=== PATIENT | male | born 1990 | race Caucasian/White ===

== ENCOUNTER 2022-07-16 18:29 | Emergency (ER) | payer OTHER, SELFPAY ==
[2022-07-16 18:41] VITALS: BP 120/71; PULSE 49; RESP 16; TEMP 36.6; O2SAT 98; BMI 25.1
--- NOTE | 2022-07-16 18:42 | ED.GENADULT ---
HPI - General Adult General Chief complaint: GI Bleed <BARRETT Gonzáles Last Filed: 07/16/22 18:44> Stated complaint: vomiting blood <BARRETT Gonzáles Last Filed: 07/16/22 18:44> Time Seen by Provider: 07/16/22 19:41 <BARRETT Gonzáles Last Filed: 07/16/22 18:44> Source: patient <DO Regina Maxwell Last Filed: 07/16/22 19:53> Mode of arrival: ambulatory <DO Regina Maxwell Last Filed: 07/16/22 19:53> Limitations: no limitations <DO Regina Maxwell Last Filed: 07/16/22 19:53> History of Present Illness HPI narrative: [age] history of IV drug use has been constipated for several days presents emergency department after noticing blood in stool. Patient is also complaining of abdominal pain he denies any fevers falls nausea vomiting <DO Regina Maxwell Last Filed: 07/16/22 19:53> Onset (ago): day(s) <DO Regina Maxwell Last Filed: 07/16/22 19:53> Related Data Home medications: Previous Rx's Medication Instructions Recorded phenylephrine 0.25 %-pramoxine 1 1 appl LA BID Hemorroids #26 grams 07/16/22 %-glycerin-wh.petrolatum rectal cream <BARRETT Gonzáles Last Filed: 07/16/22 18:44> Allergies/adverse reactions: Allergies Allergy/AdvReac Type Severity Reaction Status Date / Time No Known Allergies Allergy Verified 07/16/22 18:41 <BARRETT Gonzáles Last Filed: 07/16/22 18:44> Review of Systems Review of Systems: Review of systems: General: Patient denies any fever chills recent illness or falls Musculoskeletal: Denies back pain or body aches or other injuries HEENT: denies headache, runny nose, ear pain Respiratory: denies shortness of breath, cough Cardiovascular: no chest pain or palpitations : denies dysuria, frequency Abdomen: no nausea vomiting blood in stool and abdominal pain Extremities: no swelling, no pain Skin: no diaphoresis <DO Regina Maxwell Last Filed: 07/16/22 19:53> Yes all other systems are reviewed and are negative <DO Regina Maxwell Last Filed: 07/16/22 19:53> Physical Exam ED Vital Signs: Vital Signs - 24 hr 07/16/22 18:41 Temperature 97.9 F Pulse Rate 49 L Respiratory Rate 16 Blood Pressure 120/71 Pulse Oximetry 98 Oxygen Delivery Method Room Air BMI result Body Mass Index 25.1 <BARRETT Gonzáles - Last Filed: 07/16/22 18:44> Vital Signs - 24 hr 07/16/22 18:41 Temperature 97.9 F Pulse Rate 49 L Respiratory Rate 16 Blood Pressure 120/71 Pulse Oximetry 98 Oxygen Delivery Method Room Air BMI result Body Mass Index 25.1 <DO Regina Maxwell Last Filed: 07/16/22 19:53> General: Well-appearing well-nourished in no signs of distress HEENT: Normocephalic atraumatic Neck: No signs of JVD, no masses no tenderness or lymphadenopathy Cardiovascular: Regular rate and rhythm Respiratory: Clear to auscultation bilaterally Abdomen: Soft nontender no masses small hemorroid at 12 oclock soft mobile non thrombosed rectal exam performed guia negative lead quality technician confirmed. Extremities: Normal pedal pulses no signs of edema Skin: Dry warm no rashes Back: No tenderness full ROM <DO Regina Maxwell Last Filed: 07/16/22 19:53> Course Course Course Narrative: This is an RME: Additional HPI, ROS, PE not included below will be deferred to primary provider. 32 yo M former IVDA presents w/ lower abd pain and blood in stool X1 day. Large amount of blood filled toilet X1. No hematemisis. No previous colonoscopy. No hx coloncancer personal or family. Has been constipated PE benign Plan- labs, OBS, ct abdomen and pelvis. <BARRETT Gonzáles Last Filed: 07/16/22 18:44> Medical Decision Making Medical Decision Making MDM Narrative: Rectal exam confirms there is a nonthrombosed hemorrhoid likely the cause of bleeding patient is not anemic he has no other concerns are focal her discharge the patient home <DO Regina Maxwell Last Filed: 07/16/22 19:53> Differential Diagnosis Differential Diagnoses: The differential diagnosis associated with the presentation includes <Arsen Sutherland DO - Last Filed: 07/16/22 19:53> Hemorrhoid GI bleeding rectal bleeding chronic constipation for a tear to the rectal area. <Arsen Sutherland DO - Last Filed: 07/16/22 19:53> Admission/Observation Consideration of admission/observation: Escalation of care including admission/observation considered <Arsen Sutherland DO - Last Filed: 07/16/22 19:53> Lab Data MDM Lab Attestation statement: I reviewed the patient's lab results. <Arsen Sutherland DO - Last Filed: 07/16/22 19:53> Result Diagrams: 07/16/22 18:53 07/16/22 18:53 <BARRETT Gonzáles - Last Filed: 07/16/22 18:44> Labs: Lab Results 07/16/22 07/16/22 07/16/22 Range/Units 18:53 18:53 18:53 WBC 7.5 (4.8-10.8) X10*3/uL RBC 4.47 L (4.60-5.80) X10*6/uL Hgb 12.6 L (14.0-18.0) g/dl Hct 36.9 L (42.0-52.0) % MCV 82.6 (80.0-98.0) fL MCH 28.2 (27.0-33.0) pg MCHC 34.1 (31.0-36.0) g/dl RDW 12.1 (11.0-16.0) % Plt Count 254 (160-400) X10*3/uL MPV 9.6 (9.4-12.4) fL Immature Gran % (Auto) 0.1 (0.0-0.4) % Neut % (Auto) 39.7 L (45-73) % Lymph % (Auto) 47.5 H (20-40) % [place] % (Auto) 7.4 (2-11) % Eos % (Auto) 4.8 H (0-4) % Baso % (Auto) 0.5 (0-2) % Lymph # (Auto) 3.6 (1.2-4.9) X10*3/uL [place] # (Auto) 0.6 (0.1-1.2) X10*3/uL Eos # (Auto) 0.4 (0.0-0.4) X10*3/uL Baso # (Auto) 0.0 (0.0-0.2) X10*3/uL Abs Immat Gran (auto) 0.01 (0.00-0.03) X10*3/uL Absolute Neuts (auto) 3.0 (2.0-8.3) x10*3/uL Absolute Nucleated RBC 0.000 (0.0-0.012) X10*3/uL Nucleated RBC % (auto) 0.0 (0.0-0.2) /100WBC PT 12.1 (10.0-13.1) SEC INR 1.1 (0.9-1.1) Sodium 138 (135-145) mmol/L Potassium 4.4 (3.3-5.1) mmol/L Chloride 105 (96-108) mmol/L Carbon Dioxide 25 (22-29) mmol/L Anion Gap 12 (12-20) BUN 16 (9-16) mg/dL Creatinine 0.88 (0.5-1.4) mg/dL Estim Creat Clear Calc 114.7 Estimated GFR > 60 Random Glucose 91 (60-115) mg/dL Calcium 9.6 (8.4-10.2) mg/dL Magnesium 2.1 (1.6-2.6) mg/dL Total Bilirubin 0.4 (0.0-1.0) mg/dL AST 18 (5-37) U/L ALT 12 (0-40) U/L Alkaline Phosphatase 68 (39-117) U/L Total Protein 6.9 (6.5-8.0) g/dL Albumin 4.5 (3.5-5.0) g/dL Lipase 42 (8-78) U/L COVID-19 ([facility]) (Negative) COVID-19 Clin Com 07/16/22 Range/Units 18:53 WBC (4.8-10.8) X10*3/uL RBC (4.60-5.80) X10*6/uL Hgb (14.0-18.0) g/dl Hct (42.0-52.0) % MCV (80.0-98.0) fL MCH (27.0-33.0) pg MCHC (31.0-36.0) g/dl RDW (11.0-16.0) % Plt Count (160-400) X10*3/uL MPV (9.4-12.4) fL Immature Gran % (Auto) (0.0-0.4) % Neut % (Auto) (45-73) % Lymph % (Auto) (20-40) % [place] % (Auto) (2-11) % Eos % (Auto) (0-4) % Baso % (Auto) (0-2) % Lymph # (Auto) (1.2-4.9) X10*3/uL [place] # (Auto) (0.1-1.2) X10*3/uL Eos # (Auto) (0.0-0.4) X10*3/uL Baso # (Auto) (0.0-0.2) X10*3/uL Abs Immat Gran (auto) (0.00-0.03) X10*3/uL Absolute Neuts (auto) (2.0-8.3) x10*3/uL Absolute Nucleated RBC (0.0-0.012) X10*3/uL Nucleated RBC % (auto) (0.0-0.2) /100WBC PT (10.0-13.1) SEC INR (0.9-1.1) Sodium (135-145) mmol/L Potassium (3.3-5.1) mmol/L Chloride (96-108) mmol/L Carbon Dioxide (22-29) mmol/L Anion Gap (12-20) BUN (9-16) mg/dL Creatinine (0.5-1.4) mg/dL Estim Creat Clear Calc Estimated GFR Random Glucose (60-115) mg/dL Calcium (8.4-10.2) mg/dL Magnesium (1.6-2.6) mg/dL Total Bilirubin (0.0-1.0) mg/dL AST (5-37) U/L ALT (0-40) U/L Alkaline Phosphatase (39-117) U/L Total Protein (6.5-8.0) g/dL Albumin (3.5-5.0) g/dL Lipase (8-78) U/L COVID-19 ([facility]) Negative (Negative) COVID-19 Clin Com See Note <BARRETT Gonzáles - Last Filed: 07/16/22 18:44> Lab Results 07/16/22 07/16/22 07/16/22 Range/Units 18:53 18:53 18:53 WBC 7.5 (4.8-10.8) X10*3/uL RBC 4.47 L (4.60-5.80) X10*6/uL Hgb 12.6 L (14.0-18.0) g/dl Hct 36.9 L (42.0-52.0) % MCV 82.6 (80.0-98.0) fL MCH 28.2 (27.0-33.0) pg MCHC 34.1 (31.0-36.0) g/dl RDW 12.1 (11.0-16.0) % Plt Count 254 (160-400) X10*3/uL MPV 9.6 (9.4-12.4) fL Immature Gran % (Auto) 0.1 (0.0-0.4) % Neut % (Auto) 39.7 L (45-73) % Lymph % (Auto) 47.5 H (20-40) % [place] % (Auto) 7.4 (2-11) % Eos % (Auto) 4.8 H (0-4) % Baso % (Auto) 0.5 (0-2) % Lymph # (Auto) 3.6 (1.2-4.9) X10*3/uL [place] # (Auto) 0.6 (0.1-1.2) X10*3/uL Eos # (Auto) 0.4 (0.0-0.4) X10*3/uL Baso # (Auto) 0.0 (0.0-0.2) X10*3/uL Abs Immat Gran (auto) 0.01 (0.00-0.03) X10*3/uL Absolute Neuts (auto) 3.0 (2.0-8.3) x10*3/uL Absolute Nucleated RBC 0.000 (0.0-0.012) X10*3/uL Nucleated RBC % (auto) 0.0 (0.0-0.2) /100WBC PT 12.1 (10.0-13.1) SEC INR 1.1 (0.9-1.1) Sodium 138 (135-145) mmol/L Potassium 4.4 (3.3-5.1) mmol/L Chloride 105 (96-108) mmol/L Carbon Dioxide 25 (22-29) mmol/L Anion Gap 12 (12-20) BUN 16 (9-16) mg/dL Creatinine 0.88 (0.5-1.4) mg/dL Estim Creat Clear Calc 114.7 Estimated GFR > 60 Random Glucose 91 (60-115) mg/dL Calcium 9.6 (8.4-10.2) mg/dL Magnesium 2.1 (1.6-2.6) mg/dL Total Bilirubin 0.4 (0.0-1.0) mg/dL AST 18 (5-37) U/L ALT 12 (0-40) U/L Alkaline Phosphatase 68 (39-117) U/L Total Protein 6.9 (6.5-8.0) g/dL Albumin 4.5 (3.5-5.0) g/dL Lipase 42 (8-78) U/L COVID-19 ([facility]) (Negative) COVID-19 Clin Com 07/16/22 Range/Units 18:53 WBC (4.8-10.8) X10*3/uL RBC (4.60-5.80) X10*6/uL Hgb (14.0-18.0) g/dl Hct (42.0-52.0) % MCV (80.0-98.0) fL MCH (27.0-33.0) pg MCHC (31.0-36.0) g/dl RDW (11.0-16.0) % Plt Count (160-400) X10*3/uL MPV (9.4-12.4) fL Immature Gran % (Auto) (0.0-0.4) % Neut % (Auto) (45-73) % Lymph % (Auto) (20-40) % [place] % (Auto) (2-11) % Eos % (Auto) (0-4) % Baso % (Auto) (0-2) % Lymph # (Auto) (1.2-4.9) X10*3/uL [place] # (Auto) (0.1-1.2) X10*3/uL Eos # (Auto) (0.0-0.4) X10*3/uL Baso # (Auto) (0.0-0.2) X10*3/uL Abs Immat Gran (auto) (0.00-0.03) X10*3/uL Absolute Neuts (auto) (2.0-8.3) x10*3/uL Absolute Nucleated RBC (0.0-0.012) X10*3/uL Nucleated RBC % (auto) (0.0-0.2) /100WBC PT (10.0-13.1) SEC INR (0.9-1.1) Sodium (135-145) mmol/L Potassium (3.3-5.1) mmol/L Chloride (96-108) mmol/L Carbon Dioxide (22-29) mmol/L Anion Gap (12-20) BUN (9-16) mg/dL Creatinine (0.5-1.4) mg/dL Estim Creat Clear Calc Estimated GFR Random Glucose (60-115) mg/dL Calcium (8.4-10.2) mg/dL Magnesium (1.6-2.6) mg/dL Total Bilirubin (0.0-1.0) mg/dL AST (5-37) U/L ALT (0-40) U/L Alkaline Phosphatase (39-117) U/L Total Protein (6.5-8.0) g/dL Albumin (3.5-5.0) g/dL Lipase (8-78) U/L COVID-19 ([facility]) Negative (Negative) COVID-19 Clin Com See Note <Arsen Sutherland DO - Last Filed: 07/16/22 19:53> Independent Historian Clinical information obtained from an independent historian. History obtained from or confirmed by: Spouse <Arsen Sutherland DO - Last Filed: 07/16/22 19:53> Discharge Plan Discharge Clinical Impression: Hemorrhoids <BARRETT Gonzáles - Last Filed: 07/16/22 18:44> Patient Disposition: Home, Self-Care <BARRETT Gonzáles - Last Filed: 07/16/22 18:44> Instructions: Hemorrhoids (DC) <BARRETT Gonzáles - Last Filed: 07/16/22 18:44> Additional Instructions: You seen today by Dr. Sutherland. You were found to have hemorrhoids. He also had lab work done which was unremarkable. If you have any other concerns please do not hesitate to come back to emergency department <BARRETT Gonzáles - Last Filed: 07/16/22 18:44> Prescriptions: New tfbaxxhtk-jsbqbviq-iisjh-w.pet 0.25-1 % cream 1 appl LA BID Qty: 26 0RF <BARRETT Gonzáles - Last Filed: 07/16/22 18:44>
[2022-07-16 18:59] LABS: MANUAL DIFF FLAG NO
[2022-07-16 19:02] LABS: Basophils Percent Auto 0.5 % (0-2); Eosinophils Absolute Auto 0.4 X10*3/uL (0.0-0.4); Eosinophils Percent Auto 4.8 % (0-4); Hematocrit 36.9 % (42.0-52.0); Hemoglobin 12.6 g/dl (14.0-18.0); Imm Gran Abs Auto 0.01 X10*3/uL (0.00-0.03); Imm Gran Pct Auto 0.1 % (0.0-0.4); Lymphocytes Absolute Auto 3.6 X10*3/uL (1.2-4.9); Lymphocytes Percent Auto 47.5 % (20-40); Mean Corpuscular HGB Conc 34.1 g/dl (31.0-36.0); Mean Corpuscular Hemoglobin 28.2 pg (27.0-33.0); Mean Corpuscular Volume 82.6 fL (80.0-98.0); Mean Platelet Volume 9.6 fL (9.4-12.4); Monocytes Absolute Auto 0.6 X10*3/uL (0.1-1.2); Monocytes Percent Auto 7.4 % (2-11); Neutrophils Percent Auto 39.7 % (45-73); Platelet Count 254 X10*3/uL (160-400); Red Blood Count 4.47 X10*6/uL (4.60-5.80); Red Cell Distribution Width 12.1 % (11.0-16.0); White Blood Count 7.5 X10*3/uL (4.8-10.8)
[2022-07-16 19:08] LABS: INTERNATIONAL NORM RATIO 1.1 (0.9-1.1); Prothrombin Time 12.1 SEC (10.0-13.1)
[2022-07-16 19:22] LABS: Alanine Aminotransferase 12 U/L (0-40); Albumin Level 4.5 g/dL (3.5-5.0); Alkaline Phosphatase 68 U/L (39-117); Anion Gap 12 (12-20); Aspartate Amino Transferase 18 U/L (5-37); Bilirubin Total 0.4 mg/dL (0.0-1.0); Blood Urea Nitrogen 16 mg/dL (9-16); Calcium 9.6 mg/dL (8.4-10.2); Carbon Dioxide 25 mmol/L (22-29); Chloride 105 mmol/L (96-108); Creatinine Clr Calc Pharmacy 114.7; Estimated Glomerular Filt Rate > 60; Glucose Random 91 mg/dL (60-115); Lipase 42 U/L (8-78); Magnesium 2.1 mg/dL (1.6-2.6); Potassium 4.4 mmol/L (3.3-5.1); Sodium 138 mmol/L (135-145); Total Protein 6.9 g/dL (6.5-8.0)
[2022-07-16 19:25] LABS: COVID-19 Test Negative (Negative); IDNOW Serial# 9DB6401D
== END 2022-07-16 20:00 | disposition home or self-care (01) ==
LOC: HO.ED 20:00
PROVIDERS: Physician Assistant; Emergency Provider Student in an Organized Health Care Education/Training Program; PCP Physician Assistant
DX: K64.9 Unspecified hemorrhoids (principal); K92.2 Gastrointestinal hemorrhage, unspecified; Z20.822 Contact with and (suspected) exposure to COVID-19; F19.10 Other psychoactive substance abuse, uncomplicated
CPT/HCPCS: 80053; 83690; 83735; 85025; 85610; 87635; 99282; 99283

== ENCOUNTER 2022-08-29 23:55 | Emergency (ER) | payer OTHER, SELFPAY ==
[2022-08-29 23:58] VITALS: BP 127/66; PULSE 53; RESP 18; TEMP 36.6; O2SAT 96; BMI 25.1
[2022-08-30 02:00] VITALS: BP 140/80; PULSE 56; RESP 16; TEMP 36.8; O2SAT 98
[2022-08-30 06:00] VITALS: BP 132/75; PULSE 52; RESP 16; TEMP 36.9; O2SAT 98
--- NOTE | 2022-08-30 06:58 | ED_ITS ---
HPI - Dental/Oral General Chief complaint: Dental/Oral Stated complaint: tooth infection Time Seen by Provider: 08/30/22 06:28 Source: patient Mode of arrival: ambulatory Limitations: no limitations History of Present Illness HPI Narrative: 32-year-old male with no medical history presents to the ER for evaluation of right lower dental pain that has been worsening over the last week. He states he has had a cavity in that tooth and has been avoiding going to the dentist. He does have a dentist in [place], called them and he has appointment for September 14. He has been taking Tylenol with minimal relief. He states sensitivity to cold and hot foods. He states there is a large area of decay on that to ooze and is lacking. He denies any difficulty opening or closing his jaw. He denies any facial swelling but feels pain in his entire right face. No fever or chills MD Complaint: tooth pain Location: Tooth # (31) Onset (ago): week(s) (1) Duration: constant Severity: severe Severity scale (1-10): 9 Relieving factors: nothing Exacerbating factors: chewing, cold and heat Context: history of dental caries and poor dental care Treatment prior to arrival: topical analgesic Related Data Previous Rx's Medication Instructions Recorded phenylephrine 0.25 %-pramoxine 1 1 appl GA BID Hemorroids #26 grams 07/16/22 %-glycerin-wh.petrolatum rectal cream amoxicillin 875 mg-potassium 1 tab PO BID #20 tabs 08/30/22 clavulanate 125 mg tablet ibuprofen 600 mg tablet 600 mg PO Q8H PRN pain #20 tabs 08/30/22 tramadol 50 mg tablet 50 mg PO Q8H PRN severe pain 08/30/22 (scale score 7-10) #8 tabs Allergies Allergy/AdvReac Type Severity Reaction Status Date / Time No Known Allergies Allergy Verified 07/16/22 18:41 Review of Systems Review of Systems: Yes all other systems are reviewed and are negative [facility] Social History Social History Alcohol intake: never Smoked in Last 30 Days: Yes Use of substances other than those prescribed or required for medical reasons: Yes Substance Use Type: Heroin Substance Use Frequency: Socially Advance Directives: No Advance Directives Information Provided: No Physical Exam Vital Signs: Vital Signs: Last Vital Signs Temp 98.4 F 08/30/22 06:00 Pulse 52 06/18/23 06:00 Resp 16 08/30/22 06:00 BP 132/75 08/30/22 06:00 Pulse Ox 98 08/30/22 06:00 O2 Del Method Room Air 08/30/22 06:00 BMI result Body Mass Index 25.1 Appearance: Alert. Oriented X3. No acute distress. Head: normocephalic, atraumatic. face is symmetric Eyes: Pupils equal, round and reactive to light. ENT: Pharynx normal. No tonsillar swelling or exudate. right lower molar with large area of decay on the lingual side with associated tenderness, no gingival fluctuance. no trismus Neck: Normal inspection. Neck supple. No LAD, no submandibular swelling CVS: Normal heart rate and rhythm. Pulses normal. Respiratory: No respiratory distress. Breath sounds normal. Skin: Skin warm and dry. Normal skin color. Normal skin turgor. No rashes. Extremities: Normal inspection x4 Neuro/psych: Oriented X 3. grossly normal, nonfocal Medical Decision Making Medical Decision Making MDM Narrative: 32 y/o male presents to the ER for evaluation of right lower dental pain. exam with obvious dental decay to the right lower molar for 1 week. no evidence of abscess on exam. he has dental follow up 09/14/22. will start po abx, NSAIDS and pain control. stable for d/c home Differential Diagnosis Differential Diagnoses: The differential diagnosis associated with the presentation includes toothache, dental decay, dental fracture, dental abscess Independent Historian Clinical information obtained from an independent historian. History obtained from or confirmed by: Spouse External Record Review External record reviewed: Prior outpatient labs Prescription Management I considered prescription management with: Pain Medication and Antibiotic Critical Care Time Critical Care Time Critical Care Time: No Discharge Plan Discharge Clinical Impression: Toothache Patient Disposition: Home, Self-Care Instructions: Toothache (ED) Additional Instructions: Take the prescribed antibiotic as directed. Complete the entire course and do not miss any doses. Continue Tylenol 975 mg every 6-8 hours. Also recommend adding the prescribed ibuprofen every 6-8 hours, take with food. Take the prescribed tramadol as needed for severe pain only. Do not drive after taking this medication. You can also try putting a warm tea bag on the area to help with pain and swelling. Follow-up with your dentist as soon as possible. If you develop new or worsening symptoms call 911 or come back to the ER for further evaluation. Prescriptions: New amoxicillin-pot clavulanate 875-125 mg tablet 1 tab PO BID Qty: 20 0RF ibuprofen 600 mg tablet 600 mg PO Q8H PRN (Reason: pain) Qty: 20 0RF tramadol 50 mg tablet 50 mg PO Q8H PRN (Reason: severe pain (scale score 7-10)) Qty: 8 0RF No Action rqnzatker-femtuons-tgmso-w.pet 0.25-1 % cream 1 appl GA BID Qty: 26 0RF
== END 2022-08-30 07:41 | disposition home or self-care (01) ==
PROVIDERS: Emergency Provider Emergency Medicine Emergency Medical Services
DX: K08.89 Other specified disorders of teeth and supporting structures (principal); F17.200 Nicotine dependence, unspecified, uncomplicated
CPT/HCPCS: 99283; 99284

== ENCOUNTER 2022-11-12 22:33 | Emergency (ER) | payer OTHER, SELFPAY ==
--- NOTE | 2022-11-12 | ECG_ITS ---
Test Reason : CHEST PAIN Blood Pressure : / mmHG Vent. Rate : 047 BPM Atrial Rate : 047 BPM P-R Int : 166 ms QRS Dur : 102 ms QT Int : 484 ms P-R-T Axes : 058 050 036 degrees QTc Int : 428 ms Sinus bradycardia Otherwise normal ECG When compared with ECG of 12-NOV-2022 22:38, QRS axis Shifted left Nonspecific T wave abnormality, improved in Inferior leads Referred By: Generic ED Physician Electronically Signed By:GARY LAGUNA
--- NOTE | 2022-11-12 | ECG_ITS ---
Test Reason : CHEST PAIN FOR YEARS Blood Pressure : / mmHG Vent. Rate : 051 BPM Atrial Rate : 051 BPM P-R Int : 160 ms QRS Dur : 104 ms QT Int : 478 ms P-R-T Axes : 000 116 068 degrees QTc Int : 440 ms Sinus bradycardia Low voltage QRS Lateral infarct , age undetermined Abnormal ECG No previous ECGs available Referred By: Generic ED Physician Electronically Signed By:GARY LAGUNA
[2022-11-12 22:37] VITALS: BP 118/61; PULSE 52; RESP 18; TEMP 36.8; O2SAT 100; BMI 25.2
[2022-11-12 23:27] LABS: Hematocrit 36.7 % (42.0-52.0); Hemoglobin 12.8 g/dl (14.0-18.0); Mean Corpuscular HGB Conc 34.9 g/dl (31.0-36.0); Mean Corpuscular Hemoglobin 29.2 pg (27.0-33.0); Mean Corpuscular Volume 83.6 fL (80.0-98.0); Mean Platelet Volume 9.1 fL (9.4-12.4); Platelet Count 285 X10*3/uL (160-400); Red Blood Count 4.39 X10*6/uL (4.60-5.80); Red Cell Distribution Width 12.2 % (11.0-16.0); White Blood Count 8.2 X10*3/uL (4.8-10.8)
--- NOTE | 2022-11-12 23:28 | ED.CHESTPAIN ---
HPI - Chest Pain General Chief Complaint: Chest Pain Stated Complaint: chest pain Time Seen by Provider: 11/12/22 23:22 Source: patient Mode of arrival: ambulatory Limitations: no limitations History of Present Illness HPI narrative: Patient With history of substance abuse history of AFib on metoprolol complaining of chest pain which has been there for a while seen sheather and PCP with workup negative use IV heroin not taking his methadone not on any anticoagulants comes here for chest pain similar to that in the past since yesterday is sharp pain on the left side increases on palpation and deep breath. Patient does have history of anxiety and depression unable to sleep in the night Related Data Previous Rx's Medication Instructions Recorded phenylephrine 0.25 %-pramoxine 1 1 appl [place] BID Hemorroids #26 grams 07/16/22 %-glycerin-wh.petrolatum rectal cream amoxicillin 875 mg-potassium 1 tab PO BID #20 tabs 08/30/22 clavulanate 125 mg tablet ibuprofen 600 mg tablet 600 mg PO Q8H PRN pain #20 tabs 08/30/22 tramadol 50 mg tablet 50 mg PO Q8H PRN severe pain 08/30/22 (scale score 7-10) #8 tabs Allergies Allergy/AdvReac Type Severity Reaction Status Date / Time No Known Allergies Allergy Verified 11/12/22 22:43 Review of Systems Review of Systems: Yes all other systems are reviewed and are negative [facility] Social History Social History Alcohol intake: never Smoked in Last 30 Days: Yes Use of substances other than those prescribed or required for medical reasons: Yes Substance Use Type: Heroin Advance Directives: No Advance Directives Information Provided: No Physical Exam Vital Signs: Vital Signs: Last Vital Signs Temp 98.2 F 11/12/22 22:37 Pulse 55 11/12/22 23:36 Resp 10 L 11/12/22 23:36 BP 114/70 11/12/22 23:36 Pulse Ox 98 11/12/22 23:36 O2 Del Method Room Air 11/12/22 23:36 BMI result Body Mass Index 25.2 Appearance: Alert. Oriented X3. No acute distress. Eyes: PERRLA, No Nystagmus ENT: Pharynx normal. Oral Mucosa moist Neck: Normal inspection. Neck supple. CVS: Normal heart rate and rhythm. Pulses normal. Tender to touch left chest Respiratory: No respiratory distress. Equal air entry bilateral, no wheezing/rales/rhonchi Abdomen: Soft and nontender. Bowel sounds are present, no mass palpable, no CVA tenderness Skin: Skin warm and dry. Normal skin color. Normal skin turgor. Extremities: No lower extremity edema. No calf tenderness Neuro: Oriented X 3. No motor deficit. No sensory deficit.No cerebellar signs , cranial nerves II-XII intact Medical Decision Making Medical Decision Making [facility] Narrative: Patient with atypical chest pain for years without any acute EKG changes , sensitive troponin negative patient using heroin as an excuse for depression has methadone at home advised to follow with detox Differential Diagnosis Differential Diagnoses: The differential diagnosis associated with the presentation includes Atypical chest pain/chest wall pain/ACS/costochondritis Lab Data [facility] Lab Attestation statement: I reviewed the patient's lab results. 11/12/22 23:22 11/12/22 23:22 Labs: Lab Results 11/12/22 11/12/22 11/12/22 Range/Units 23:22 23:22 23:22 WBC 8.2 (4.8-10.8) X10*3/uL RBC 4.39 L (4.60-5.80) X10*6/uL Hgb 12.8 L (14.0-18.0) g/dl Hct 36.7 L (42.0-52.0) % MCV 83.6 (80.0-98.0) fL MCH 29.2 (27.0-33.0) pg MCHC 34.9 (31.0-36.0) g/dl RDW 12.2 (11.0-16.0) % Plt Count 285 (160-400) X10*3/uL MPV 9.1 L (9.4-12.4) fL Absolute Nucleated RBC 0.000 (0.0-0.012) X10*3/uL Nucleated RBC % (auto) 0.0 (0.0-0.2) /100WBC Sodium 139 (135-145) mmol/L Potassium 4.2 (3.3-5.1) mmol/L Chloride 107 (96-108) mmol/L Carbon Dioxide 21 L (22-29) mmol/L Anion Gap 15 (12-20) BUN 14 (9-16) mg/dL Creatinine 0.78 (0.5-1.4) mg/dL Estim Creat Clear Calc 129.4 Estimated GFR > 60 Random Glucose 83 (60-115) mg/dL Calcium 9.8 (8.4-10.2) mg/dL Total Bilirubin 0.3 (0.0-1.0) mg/dL AST 15 (5-37) U/L ALT 13 (0-40) U/L Alkaline Phosphatase 74 (39-117) U/L Troponin I High Sens < 2.7 (<3.5-35.0) ng/L Total Protein 7.3 (6.5-8.0) g/dL Albumin 4.3 (3.5-5.0) g/dL Independent Interpretation I performed an independent interpretation of an: EKG Interpretation: Sinus bradycardia heart rate 51 beats per minute normal intervals normal axis no acute ST-T changes no acute ischemia Discharge Plan Discharge Clinical Impression: Atypical chest pain, Heroin abuse Patient Disposition: Home, Self-Care Instructions: Chest Wall Pain (ED), Opioid Use Disorder (ED) Additional Instructions: Your chest pain is not the heart , stop using heroin start taking methadone follow-up with your PCP Prescriptions: No Action rraekvfon-obryzkgf-tuveo-w.pet 0.25-1 % cream 1 appl CO BID Qty: 26 0RF amoxicillin-pot clavulanate 875-125 mg tablet 1 tab PO BID Qty: 20 0RF ibuprofen 600 mg tablet 600 mg PO Q8H PRN (Reason: pain) Qty: 20 0RF tramadol 50 mg tablet 50 mg PO Q8H PRN (Reason: severe pain (scale score 7-10)) Qty: 8 0RF
[2022-11-12 23:36] VITALS: BP 114/70; PULSE 55; RESP 10; O2SAT 98
--- NOTE | 2022-11-12 23:37 | PC.NURSE ---
Pt ca&ox3, no signs of distress. Reports sob and 1/10 left sided chest pain that hes had for 2 weeks but progressively got worse today. Pt report he got methadone this am at 8am and took a 200mg edible that he makes himself about an hour ago. Pt denies n/v. Pt reports some anxiety Pt reports he last used heroin 10 days ago. IV line placed in right ac Labs collected placed on bedside monitor. Pt changed into hospital attire. Provider in with pt. Pts gf at bedside plan of care ongoing.
[2022-11-12 23:43] LABS: Alanine Aminotransferase 13 U/L (0-40); Albumin Level 4.3 g/dL (3.5-5.0); Alkaline Phosphatase 74 U/L (39-117); Anion Gap 15 (12-20); Aspartate Amino Transferase 15 U/L (5-37); Bilirubin Total 0.3 mg/dL (0.0-1.0); Blood Urea Nitrogen 14 mg/dL (9-16); Calcium 9.8 mg/dL (8.4-10.2); Carbon Dioxide 21 mmol/L (22-29); Chloride 107 mmol/L (96-108); Creatinine Clr Calc Pharmacy 129.4; Estimated Glomerular Filt Rate > 60; Glucose Random 83 mg/dL (60-115); Potassium 4.2 mmol/L (3.3-5.1); Sodium 139 mmol/L (135-145); Total Protein 7.3 g/dL (6.5-8.0)
[2022-11-12 23:48] LABS: Troponin-I High Sensitivity < 2.7 ng/L (<3.5-35.0)
== END 2022-11-13 01:44 | disposition home or self-care (01) ==
PROVIDERS: Emergency Provider Internal Medicine; PCP Physician Assistant
DX: R07.89 Other chest pain (principal); I48.91 Unspecified atrial fibrillation; F11.10 Opioid abuse, uncomplicated; Z79.899 Other long term (current) drug therapy
CPT/HCPCS: 36415; 80053; 84484; 85027; 93005; 99284; 99285

== ENCOUNTER 2023-01-11 19:38 | Emergency (ER) | payer OTHER, SELFPAY ==
[2023-01-11 20:10] VITALS: BP 115/64; PULSE 68; RESP 18; TEMP 37.3; O2SAT 97; BMI 25.8
[2023-01-11 20:55] LABS: IDNOW Serial# 6674DD1D; Strep A Nucleic Acid Positive (Negative)
[2023-01-11 21:24] LABS: Influenza A PCR NEGATIVE (Negative); Influenza B PCR NEGATIVE (Negative); Resp Syncy Virus RNA Qual PCR NEGATIVE (Negative); SARS COV2 PCR INHOUSE NEGATIVE (Negative)
[2023-01-11 22:36] VITALS: BP 135/76; PULSE 83; RESP 18; TEMP 37; O2SAT 97
[2023-01-11 23:17] VITALS: BP 131/76; PULSE 74; RESP 14; TEMP 37.6; O2SAT 99
--- NOTE | 2023-01-11 23:19 | ED.URI ---
HPI - URI/Sore Throat General Chief Complaint: General Medical Stated Complaint: flu like symptoms Time Seen by Provider: 01/11/23 23:18 Source: patient Mode of arrival: ambulatory Limitations: no limitations History of Present Illness HPI Narrative: 32 yo male PMH of tonsillitis notes fevers, chills and sore throat x 1 day. took leftover amoxicillin he had. Is able to talk and swallow. thinks he has strep throat. MD elicited complaint: sore throat Onset (ago): day(s) (1) Consistency: constant Severity: severe Description of mucous: clear Able to tolerate fluids by mouth: Yes Exacerbating factors: swallowing Relieving factors: nothing Context: other Associated symptoms: fever, chills and headache Treatments prior to arrival: antibiotics Related Data Previous Rx's Medication Instructions Recorded phenylephrine 0.25 %-pramoxine 1 1 appl PA BID Hemorroids #26 grams 07/16/22 %-glycerin-wh.petrolatum rectal cream amoxicillin 875 mg-potassium 1 tab PO BID #20 tabs 08/30/22 clavulanate 125 mg tablet ibuprofen 600 mg tablet 600 mg PO Q8H PRN pain #20 tabs 08/30/22 tramadol 50 mg tablet 50 mg PO Q8H PRN severe pain 08/30/22 (scale score 7-10) #8 tabs amoxicillin 875 mg-potassium 1 tab PO BID #19 tabs 01/11/23 clavulanate 125 mg tablet Allergies Allergy/AdvReac Type Severity Reaction Status Date / Time No Known Allergies Allergy Verified 11/12/22 22:43 Review of Systems Review of Systems: Constitutional : positive Fever, positive Chills ENT/Mouth : positive sore throat, no runny nose Eyes: No Discharge Cardiovascular : No Chest Pain, No SOB Respiratory : No Cough, No Sputum Gastrointestinal : No Nausea, No Vomiting, No Diarrhea Genitourinary : No Dysuria, No Urinary Frequency Musculoskeletal : positive Myalgia Skin : No rash Neuro : No Headache PMFSH Past Medical History Attestation statement: The following information was validated with the patient. Medical History Tonsillitis Social History Social History (Updated 01/11/23 @ 23:25 by Zahra Jiang DO) Alcohol intake: never Patient Tobacco Use Status: Current everyday Tobacco user Smoked in Last 30 Days: Yes Use of substances other than those prescribed or required for medical reasons: Yes Substance Use Type: Marijuana Substance Use Frequency: Daily Last Used Substance: Days (ago) Advance Directives: No Advance Directives Information Provided: Yes Physical Exam Vital Signs: Vital Signs: Last Vital Signs Temp 99.2 F 01/11/23 23:59 Pulse 68 01/11/23 23:59 Resp 18 01/11/23 23:59 BP 149/86 H 01/11/23 23:59 Pulse Ox 99 01/11/23 23:17 O2 Del Method Room Air 01/11/23 23:17 BMI result Body Mass Index 25.8 Appearance: Alert. Oriented X3. No acute distress. Eyes: Pupils equal, round and reactive to light. ENT: Pharynx bilateral tonsilar swelling with exudates and erythema uvula is midline casandra voice and tolerating secretions Neck: Normal inspection. Neck supple. CVS: Normal heart rate and rhythm. Pulses normal. Respiratory: No respiratory distress. Breath sounds normal. Abdomen: Soft and nontender. Skin: Skin warm and dry. Normal skin color. Normal skin turgor. Extremities: No lower extremity edema. Neuro: Oriented X 3. No motor deficit. No sensory deficit. Medications Administered Discontinued Medications Generic Name Dose Route Start Last Admin Trade Name Freq PRN Reason Stop Dose Admin Amoxicillin/Clavulanate Potassium 875 mg 01/11/23 23:19 01/11/23 23:54 Amoxicillin/Potassium Clav 875 Mg Tablet PO 01/11/23 23:20 875 mg ONCE ONE Administration Dexamethasone Sodium Phosphate 8 mg 01/11/23 23:22 01/11/23 23:55 Dexamethasone Sod Phosphate 4 Mg/Ml Vial PO 01/11/23 23:23 8 mg ONCE ONE Administration Medical Decision Making Medical Decision Making MDM Narrative: 32 yo male with PMH of tonsillitis here with URI symptoms and sore throat x 2 days no signs of [employer] On exam or deeper space infection at this time will start on augmentin and DC home with precautions - one time dose of dexamethasone in the ED for swelling and pain. Hx of same in past. Differential Diagnosis Differential Diagnoses: The differential diagnosis associated with the presentation includes viral infection, GAS pharyngitis Admission/Observation Consideration of admission/observation: Escalation of care including admission/observation considered VS stable, tolerating PO, no concern for deeper space infection can be managed as outpatient Lab Data MDM Lab Attestation statement: I reviewed the patient's lab results. Labs: Lab Results 01/11/23 Range/Units 20:29 Influenza Type A (PCR) NEGATIVE (Negative) Influenza Type B (PCR) NEGATIVE (Negative) RSV RNA Qual (PCR) NEGATIVE (Negative) SARS-CoV-2 RNA (RT-PCR) NEGATIVE (Negative) S. pyogenes GrpA CLINT Positive A (Negative) Independent Historian Clinical information obtained from an independent historian. History obtained from or confirmed by: Spouse External Record Review External record reviewed: Office record Prescription Management I considered prescription management with: Antibiotic Discharge Plan Discharge Clinical Impression: Strep throat Patient Disposition: Home, Self-Care Instructions: Strep Throat (ED) Additional Instructions: return for worsening symptoms - no improvement, increased swelling or pain, inability to eat or drink or any other concerns. finish your antibiotics On amoxicillin-clavulanate, softer bowel movements are to be expected. Call your provider if you move your bowels more than 4 times a day, your bowel movements are almost all liquid, or you get a rash.? Prescriptions: New amoxicillin-pot clavulanate 875-125 mg tablet 1 tab PO BID Qty: 19 0RF No Action jcsxqernb-pbvqocav-vwldu-w.pet 0.25-1 % cream 1 appl PA BID Qty: 26 0RF amoxicillin-pot clavulanate 875-125 mg tablet 1 tab PO BID Qty: 20 0RF ibuprofen 600 mg tablet 600 mg PO Q8H PRN (Reason: pain) Qty: 20 0RF tramadol 50 mg tablet 50 mg PO Q8H PRN (Reason: severe pain (scale score 7-10)) Qty: 8 0RF Stand Alone Forms: Work/School Release Interventions: ED Discharge Assessment Last Done: 01/12/23 00:09 Discharge Date/Time: 01/12/23 00:10
[2023-01-11] MEDS: Amoxicillin/Potassium Clav 875 MG TABLET PO (23:54)
[2023-01-11] MEDS: dexAMETHasone sod phosphate 4 MG/ML VIAL 8 MG PO (23:55)
[2023-01-11 23:59] VITALS: BP 149/86; PULSE 68; RESP 18; TEMP 37.3
--- NOTE | 2023-01-12 00:06 | PC.NURSE ---
Patient alert and oriented, calm and cooperative, and in no acute distress. PT reporting 8/10 pain at this time. VSS. Medications administered as per MAY. Plan of care ongoing. PT verbalized understanding.
== END 2023-01-12 00:10 | disposition home or self-care (01) ==
PROVIDERS: Emergency Provider Emergency Medicine
DX: J02.0 Streptococcal pharyngitis (principal); J02.9 Acute pharyngitis, unspecified; R50.9 Fever, unspecified; R51.9 Headache, unspecified; F17.200 Nicotine dependence, unspecified, uncomplicated; Z20.822 Contact with and (suspected) exposure to COVID-19; Z20.828 Contact with and (suspected) exposure to other viral communicable diseases; Z71.6 Tobacco abuse counseling; Z79.899 Other long term (current) drug therapy
CPT/HCPCS: 0241U; 87651; 99283; 99284; J1100

== ENCOUNTER 2024-03-09 10:09 | Emergency (ER) | payer OTHER, SELFPAY ==
[2024-03-09 10:33] VITALS: BP 142/89; PULSE 103; RESP 16; TEMP 37; O2SAT 98; BMI 24.6
--- NOTE | 2024-03-09 10:37 | ECG_ITS ---
Test Reason : chest burning Blood Pressure : / mmHG Vent. Rate : 088 BPM Atrial Rate : 088 BPM P-R Int : 152 ms QRS Dur : 090 ms QT Int : 510 ms P-R-T Axes : 079 056 047 degrees QTc Int : 617 ms Normal sinus rhythm Right atrial enlargement Nonspecific T wave abnormality Prolonged QT Abnormal ECG When compared with ECG of 12-NOV-2022 23:17, Vent. rate has increased BY 41 BPM Nonspecific T wave abnormality now evident in Anterolateral leads QT has lengthened Referred By: Generic ED Physician Electronically Signed By:Jorje Guzman
[2024-03-09 11:04] LABS: MANUAL DIFF FLAG NO
[2024-03-09 11:07] LABS: Basophils Percent Auto 0.3 % (0-2); Hematocrit 40.1 % (42.0-52.0); Hemoglobin 13.1 g/dl (14.0-18.0); Imm Gran Abs Auto 0.04 X10*3/uL (0.00-0.03); Imm Gran Pct Auto 0.6 % (0.0-0.4); Lymphocytes Percent Auto 13.9 % (20-40); Mean Corpuscular HGB Conc 32.7 g/dl (31.0-36.0); Mean Corpuscular Volume 79.6 fL (80.0-98.0); Mean Platelet Volume 9.3 fL (9.4-12.4); Monocytes Absolute Auto 0.3 X10*3/uL (0.1-1.2); Monocytes Percent Auto 4.9 % (2-11); Neutrophils Absolute Auto 5.6 x10*3/uL (2.0-8.3); Neutrophils Percent Auto 80.3 % (45-73); Platelet Count 285 X10*3/uL (160-400); Red Blood Count 5.04 X10*6/uL (4.60-5.80)
--- NOTE | 2024-03-09 11:17 | ED_ITS ---
HPI - General Adult General Chief complaint: Nausea/Vomiting/Diarrhea Stated complaint: chest burning headache nausea dizzy Time Seen by Provider: 03/09/24 11:09 Source: patient Mode of arrival: ambulatory Limitations: no limitations History of Present Illness ED Provider: Estefani SHEPHERD narrative: Patient is a 33-year-old male with history of afib, supposed to be on metoprolol but has not been taking, not anticoagulated, substance use disorder presenting to the emergency department with complaint of body aches, chills, headache, chest burning since yesterday. Reports co-worker recently sick with similar symptoms. Reports nausea and vomiting yesterday, none today. Denies diarrhea, constipation, hematemesis. Did not check temperature with thermometer. Reports that he has been injecting fentanyl and unintentionally xylazine. States primary injection site is right AC which does not appear infected. MD complaint: body aches, chest burning Onset (ago): day(s) Location: chest Radiation: non-radiation Severity: moderate Quality: burning Pain Consistency: constant Associated symptoms: fever/chills, headaches and nausea/vomiting Treatments prior to arrival: none Related Data Previous Rx's ?Medication ?Instructions ?Recorded phenylephrine 0.25 %-pramoxine 1 1 appl CO BID Hemorroids #26 grams 07/16/22 %-glycerin-wh.petrolatum rectal cream amoxicillin 875 mg-potassium 1 tab PO BID #20 tabs 08/30/22 clavulanate 125 mg tablet ibuprofen 600 mg tablet 600 mg PO Q8H PRN pain #20 tabs 08/30/22 tramadol 50 mg tablet 50 mg PO Q8H PRN severe pain 08/30/22 (scale score 7-10) #8 tabs amoxicillin 875 mg-potassium 1 tab PO BID #19 tabs 01/11/23 clavulanate 125 mg tablet Allergies Allergy/AdvReac Type Severity Reaction Status Date / Time No Known Allergies Allergy Verified 03/09/24 10:37 Review of Systems 2 Review of Systems: As per HPI Yes all other systems are reviewed and are negative Constitutional: Constitutional: Reports as per HPI [facility] Past Medical History Medical History Tonsillitis Social History Social History (Updated 01/11/23 @ 23:25 by Zahra Deidre, DO) Alcohol intake: never Patient Tobacco Use Status: Current everyday Tobacco user Smoked in Last 30 Days: No Use of substances other than those prescribed or required for medical reasons: Yes Substance Use Type: Heroin and Opiates Advance Directives: No Advance Directives Information Provided: No Physical Exam ED Vital Signs: Vital Signs - 24 hr 03/09/24 10:33 03/09/24 11:24 Temperature 98.6 F 98.8 F Pulse Rate 103 H 66 Respiratory Rate 16 18 Blood Pressure 142/89 H 132/82 Pulse Oximetry 98 98 Oxygen Delivery Method Room Air Room Air BMI result Body Mass Index 24.6 Vital signs have been reviewed and appear to be correct. Blood pressure normal. Heart rate normal. Respiratory rate normal. Temperature normal. Oxygen saturation normal. Const General: cooperative, healthy appearing and no acute distress Orientation/consciousness: oriented to person, oriented to place, oriented to time and patient oriented x3 Limitations: no limitations HENMT Head: Yes normocephalic and Yes atraumatic Ears: external ears normal General nose exam: Normal external nose present Face and sinus: Yes face symmetric Mouth: oropharynx normal and moist mucous membranes Throat: Yes uvula midline Eyes Pupils: Equal, round and reactive pupils present Neck Neck: Yes normal visual inspection and Yes supple Resp Effort & Inspection: normal respiratory effort and able to speak in complete sentences Auscultation: clear to auscultation bilaterally Cardio Rate: regular rate Rhythm: regular rhythm Heart sounds: S1 normal heart sound present and S2 normal heart sound present GI Palpation (GI): Soft to palpation and nontender Auscultation: normoactive bowel sounds General: Yes no CVA tenderness Back/Spine/Pelvis Back: no CVA tenderness Skin General skin exam: elasticity normal and turgor normal Neuro General: oriented to person, oriented to place, oriented to time, patient oriented x3, moves all extremities, no focal motor deficits and CN's II-XI intact bilaterally Cranial nerves: Yes Equal, round and reactive pupils present Cognition (Neuro): normal cognition Extrem General: Yes full ROM, Yes no pedal edema and Yes no calf tenderness Elbow/forearm/wrist images: 2 1. puncture wound without erythema, warmth, drainage/discharge Psych Mental Status: mental status grossly normal Affect: normal affect Thought process: Normal thought process present Medical Decision Making Medical Decision Making MDM Narrative: Patient is a 33-year-old male with history of afib, supposed to be on metoprolol but has not been taking, not anticoagulated, substance use disorder presenting to the emergency department with complaint of body aches, chills, headache, chest burning since yesterday. On exam patient is awake, A+Ox3, VS WNL, afebrile, normal neurological exam without focal deficits, physical exam findings as above. Given reported symptoms and physical exam findings, initial differential includes but is not limited to viral illness, Covid, flu, RSV, electrolyte abnormality, gastritis. Less likely PE, will check d-dimer. Unlikely ACS but will obtain troponin. Labs notable for no leukocytosis, negative troponin, no significant electrolyte abnormalities, negative d-dimer, negative ethanol. Viral serology negative. EKG shows normal sinus rhythm, initial EKG with prolonged Qtc, normal on repeat. Results discussed with patient and all questions answered. Return precautions discussed with patient at bedside. Patient verbalized understanding of and agreement with plan. Differential Diagnosis Differential Diagnoses: The differential diagnosis associated with the presentation includes As per [facility] Admission/Observation Consideration of admission/observation: Escalation of care including admission/observation considered Patient would have been admitted to the hospital had their work up had any findings where hospital admission was appropriate and their clinical presentation warranted hospital admission. Lab Data [facility] Lab Attestation statement: I reviewed the patient's lab results. As per [facility] 03/09/24 10:58 03/09/24 10:58 Labs: Lab Results 03/09/24 03/09/24 03/09/24 Range/Units 10:58 12:45 13:43 WBC 7.0 (4.8-10.8) X10*3/uL RBC 5.04 (4.60-5.80) X10*6/uL Hgb 13.1 L (14.0-18.0) g/dl Hct 40.1 L (42.0-52.0) % MCV 79.6 L (80.0-98.0) fL MCH 26.0 L (27.0-33.0) pg MCHC 32.7 (31.0-36.0) g/dl RDW 13.0 (11.0-16.0) % Plt Count 285 (160-400) X10*3/uL MPV 9.3 L (9.4-12.4) fL Immature Gran % (Auto) 0.6 H (0.0-0.4) % Neut % (Auto) 80.3 H (45-73) % Lymph % (Auto) 13.9 L (20-40) % Shannon % (Auto) 4.9 (2-11) % Eos % (Auto) 0.0 (0-4) % Baso % (Auto) 0.3 (0-2) % Lymph # (Auto) 1.0 L (1.2-4.9) X10*3/uL Shannon # (Auto) 0.3 (0.1-1.2) X10*3/uL Eos # (Auto) 0.0 (0.0-0.4) X10*3/uL Baso # (Auto) 0.0 (0.0-0.2) X10*3/uL Abs Immat Gran (auto) 0.04 H (0.00-0.03) X10*3/uL Absolute Neuts (auto) 5.6 (2.0-8.3) x10*3/uL Absolute Nucleated RBC 0.000 (0.0-0.012) X10*3/uL Nucleated RBC % (auto) 0.0 (0.0-0.2) /100WBC D-Dimer High Sensitivty < 150 NG/ML Sodium 138 (135-145) mmol/L Potassium 3.7 (3.3-5.1) mmol/L Chloride 103 (96-108) mmol/L Carbon Dioxide 25 (22-29) mmol/L Anion Gap 14 (12-20) BUN 14 (9-16) mg/dL Creatinine 0.76 (0.5-1.4) mg/dL Estim Creat Clear Calc 131.6 Estimated GFR > 60 Random Glucose 127 H (60-115) mg/dL Calcium 9.4 (8.4-10.2) mg/dL Total Bilirubin 0.5 (0.0-1.0) mg/dL Direct Bilirubin 0.2 (0.0-0.5) mg/dL AST 19 (5-37) U/L ALT 13 (0-40) U/L Alkaline Phosphatase 69 (39-117) U/L Troponin I High Sens < 2.7 (<3.5-35.0) ng/L Total Protein 7.9 (6.5-8.0) g/dL Albumin 4.4 (3.5-5.0) g/dL Lipase 6 L (8-78) U/L Urine Color Dark Yellow Urine Appearance Clear Urine pH 6.0 (5.0-9.0) Ur Specific Ninole >= 1.030 H (1.005-1.025) Urine Protein 30 (1+) H (Neg-Trace) mg/dL Urine Glucose (UA) Negative (Negative) mg/dL Urine Ketones Trace (Negative) mg/dL Urine Blood Negative (Negative) Urine Nitrite Negative (Negative) Ur Leukocyte Esterase Negative (Negative) Urine RBC 0-2 (0-2) /HPF Urine WBC 0-5 (0-5) /HPF Ur Squamous Epith Cells 0-2 (0-2) /HPF Urine Bacteria None Seen (None Seen) Hyaline Casts 0-2 (0-2) /LPF Urine Opiates Screen Not Detected (Not Detect) Ur Buprenorphine Scrn Not Detected (Not Detect) ng/mL Ur Oxycodone Screen Not Detected (Not Detect) ng/mL Urine Methadone Screen Positive H (Not Detect) ng/mL Urine Fentanyl Screen POSITIVE H (Not Detect) Ur Barbiturates Screen Not Detected (Not Detect) Ur Phencyclidine Scrn Not Detected (Not Detect) Ur Amphetamines Screen Not Detected (Not Detect) U Benzodiazepines Scrn Not Detected (Not Detect) Urine Cocaine Screen POSITIVE H (Not Detect) U Marijuana (THC) Screen POSITIVE H (Not Detect) Ethyl Alcohol < 10 mg/dL Influenza Type A (PCR) NEGATIVE (Negative) Influenza Type B (PCR) NEGATIVE (Negative) RSV RNA Qual (PCR) NEGATIVE (Negative) SARS-CoV-2 RNA (RT-PCR) NEGATIVE (Negative) External Record Review External record reviewed: Inpatient record, Office record and Outpatient record Discharge Plan Discharge Clinical Impression: Viral illness Patient Disposition: Home, Self-Care Instructions: Viral Syndrome (ED) Additional Instructions: You were evaluated in the emergency department today for nausea, vomiting and chest pain. Your evaluation did not reveal evidence of conditions requiring emergent medical treatment at this time. Your symptoms should resolve on their own over the next few days. You can use over the counter Maalox for your symptoms if needed. We recommend that you get plenty of rest and drink plenty of fluids. Follow-up with your primary care provider as needed. Return to the emergency department if you develop worsening pain, shortness of breath or difficulty breathing, dizziness, lightheadedness, fainting or any other new or concerning symptoms. Prescriptions: No Action cyzpkfxxv-oxscikei-hcoeq-w.pet 0.25-1 % cream 1 appl CO BID Qty: 26 0RF amoxicillin-pot clavulanate 875-125 mg tablet 1 tab PO BID Qty: 19 0RF amoxicillin-pot clavulanate 875-125 mg tablet 1 tab PO BID Qty: 20 0RF ibuprofen 600 mg tablet 600 mg PO Q8H PRN (Reason: pain) Qty: 20 0RF tramadol 50 mg tablet 50 mg PO Q8H PRN (Reason: severe pain (scale score 7-10)) Qty: 8 0RF Print Language: Yoruba
[2024-03-09 11:24] VITALS: BP 132/82; PULSE 66; RESP 18; TEMP 37.1; O2SAT 98
--- NOTE | 2024-03-09 11:25 | ECG_ITS ---
Test Reason : REPEAT Blood Pressure : / mmHG Vent. Rate : 068 BPM Atrial Rate : 068 BPM P-R Int : 162 ms QRS Dur : 092 ms QT Int : 440 ms P-R-T Axes : 073 048 023 degrees QTc Int : 467 ms Normal sinus rhythm Possible Left atrial enlargement Septal infarct , age undetermined Abnormal ECG When compared with ECG of 09-MAR-2024 10:56, Septal infarct is now Present QT has shortened Referred By: Sera Jara Electronically Signed By:RAJESH BARRERA MD
[2024-03-09 11:35] LABS: Alanine Aminotransferase 13 U/L (0-40); Albumin Level 4.4 g/dL (3.5-5.0); Anion Gap 14 (12-20); Aspartate Amino Transferase 19 U/L (5-37); Bilirubin Direct 0.2 mg/dL (0.0-0.5); Bilirubin Total 0.5 mg/dL (0.0-1.0); Blood Urea Nitrogen 14 mg/dL (9-16); Calcium 9.4 mg/dL (8.4-10.2); Carbon Dioxide 25 mmol/L (22-29); Chloride 103 mmol/L (96-108); Creatinine Clr Calc Pharmacy 131.6; Estimated Glomerular Filt Rate > 60; Glucose Random 127 mg/dL (60-115); Lipase 6 U/L (8-78); Potassium 3.7 mmol/L (3.3-5.1); Sodium 138 mmol/L (135-145); Total Protein 7.9 g/dL (6.5-8.0)
[2024-03-09 12:06] LABS: Troponin-I High Sensitivity < 2.7 ng/L (<3.5-35.0)
[2024-03-09 12:24] LABS: Influenza A PCR NEGATIVE (Negative); Influenza B PCR NEGATIVE (Negative); Resp Syncy Virus RNA Qual PCR NEGATIVE (Negative); SARS COV2 PCR INHOUSE NEGATIVE (Negative)
[2024-03-09 13:05] LABS: D Dimer High Sensitivity < 150 NG/ML
[2024-03-09 13:08] LABS: Ethanol < 10 mg/dL
[2024-03-09 13:54] LABS: Appearance Urine Clear; Color Urine Dark Yellow; Glucose Urine UA Negative (Negative); Leukocyte Esterase Urine Negative (Negative); Nitrite Urine Negative (Negative); Specific Gravity - Urine >= 1.030 (1.005-1.025); UMIC TRIGGER UACC YES; Urine Blood Negative (Negative); Urine Ketones Trace mg/dL (Negative); Urine Protein 30 (1+) mg/dL (Neg-Trace)
[2024-03-09 13:57] LABS: Bacteria Urine None Seen (None Seen); Hyaline Casts Urine 0-2 /LPF (0-2); RBC Urine 0-2 /HPF (0-2); Squamous Epithelial Cell Urine 0-2 /HPF (0-2); WBC Urine 0-5 /HPF (0-5)
[2024-03-09 14:05] LABS: Amphetamine Screen Urine Not Detected (Not Detect); Barbiturates, Urine Not Detected (Not Detect); Benzodiazepines Screen Urine Not Detected (Not Detect); Buprenorphine Scr Not Detected (Not Detect); Cannabinoid Screen Urine POSITIVE (Not Detect); Cocaine Screen Urine POSITIVE (Not Detect); Fentanyl, urine POSITIVE (Not Detect); Methadone Screen, Urine Positive (Not Detect); Opiate Screen Urine Not Detected (Not Detect); Oxycodone Screen Urine Not Detected (Not Detect); Phencyclidine Screen Urine Not Detected (Not Detect)
[2024-03-09 14:09] LABS: Alkaline Phosphatase 69 U/L (39-117)
[2024-03-09 14:39] VITALS: BP 113/70; PULSE 85; RESP 18; TEMP 36.9; O2SAT 98
== END 2024-03-09 14:40 | disposition home or self-care (01) ==
PROVIDERS: Registered Nurse Emergency; Emergency Provider Emergency Medicine; PCP Physician Assistant
DX: B34.9 Viral infection, unspecified (principal); R11.2 Nausea with vomiting, unspecified; R50.9 Fever, unspecified; F17.200 Nicotine dependence, unspecified, uncomplicated; Z03.818 Encounter for observation for suspected exposure to other biological agents ruled out; I48.91 Unspecified atrial fibrillation; Z79.899 Other long term (current) drug therapy
CPT/HCPCS: 0241U; 36415; 80048; 80076; 80307; 81001; 83690; 84484; 85025; 85379; 93005; 99284

== ENCOUNTER → 2024-03-09 10:37 | Outpatient (BNV) | payer OTHER, SELFPAY | PROVIDERS: Emergency Provider Emergency Medicine; PCP Physician Assistant; Visit Provider Internal Medicine Cardiovascular Disease | DX: R94.31 Abnormal electrocardiogram [ECG] [EKG] (principal) | CPT/HCPCS: 93010 ==

== ENCOUNTER 2024-07-24 20:21 | Emergency (ER) | payer MEDICAID, SELFPAY ==
--- NOTE | ~2024-07-24 | XR_ITS ---
CLINICAL HISTORY: trauma,pain 3 view right hand Comparison: None Findings: No acute displaced fracture. Mild 5th metacarpal deformity appears old/chronic. Small adjacent fragment appears old with sclerosis at 5th carpal-metacarpal. No dislocations. Mild soft tissue swelling is nonspecific, including proximally. No radiopaque foreign body. IMPRESSION: 1. Small fragment of the base of the 5th metacarpal is likely old. 2. No dislocation. This document has been electronically signed by: Jc Vitale MD on 07/24/2024 21:19:40
[2024-07-24 20:30] VITALS: BP 132/85; PULSE 83; RESP 18; TEMP 36.8; O2SAT 96; BMI 25.8
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
--- NOTE | 2024-07-24 21:28 | PC.NURSE ---
pt UTD on tetanus- last given 01/2022
--- NOTE | 2024-07-24 22:26 | PC.NURSE ---
pt found not to be in exam room during rounds- pt dispo LWCT
== END 2024-07-24 22:27 | disposition left against medical advice (07) ==
PROVIDERS: Emergency Provider Emergency Medicine; PCP Physician Assistant
DX: S69.91XA Unspecified injury of right wrist, hand and finger(s), initial encounter (principal); X99.8XXA Assault by other sharp object, initial encounter; M79.641 Pain in right hand; Y93.9 Activity, unspecified; Y92.9 Unspecified place or not applicable; Y99.9 Unspecified external cause status; Z53.29 Procedure and treatment not carried out because of patient's decision for other reasons
CPT/HCPCS: 73130; 99283; 99284

== ENCOUNTER → 2024-07-24 20:34 | Outpatient (BNV) | payer MEDICAID, SELFPAY | PROVIDERS: PCP Physician Assistant; Visit Provider Radiology Neuroradiology | DX: M79.641 Pain in right hand (principal) | CPT/HCPCS: 73130 ==

== ENCOUNTER 2025-03-04 15:09 | Emergency (ER) | payer MEDICAID, SELFPAY ==
--- NOTE | ~2025-03-04 | CT_ITS ---
CLINICAL HISTORY: IVDA, CP SOB, r o septic emboli vs PE CT angiography chest with contrast. 3D Postprocessing. Comparison: CR - XR CHEST 2V - 03/04/25 15:38 EST Findings: The heart size is normal. RV/LV ratio is normal. Unremarkable thoracic aorta and great vessels. No aneurysm. No pulmonary artery filling defects. The visualized thyroid and mediastinum are unremarkable. 3 mm ground-glass nodule in the right upper lobe ( series 9, image 229/539), these are typically postinflammatory. No further follow-up is necessary for ground-glass nodules of this size. Intrapulmonary lymph node in the right minor fissure. No consolidation, pleural effusion or pneumothorax. The upper abdomen is unremarkable. No acute fractures. IMPRESSION: 1. No acute intrathoracic findings. This document has been electronically signed by: Emili Verde MD on 03/04/2025 18:41:08
--- NOTE | ~2025-03-04 | XR_ITS ---
CLINICAL HISTORY: CP 2 view chest x-ray Comparison: None provided Findings: No consolidation or effusion. Normal size heart. No acute fracture. IMPRESSION: 1. No acute findings. This document has been electronically signed by: Emili Verde MD on 03/04/2025 16:05:38
--- NOTE | 2025-03-04 15:12 | ECG_ITS ---
Test Reason : CP Blood Pressure : */* mmHG Vent. Rate : 60 BPM Atrial Rate : 60 BPM P-R Int : 146 ms QRS Dur : 86 ms QT Int : 418 ms P-R-T Axes : 76 43 34 degrees QTcB Int : 418 ms Normal sinus rhythm Normal ECG When compared with ECG of 09-Mar-2024 11:43, Criteria for Septal infarct are no longer Present Nonspecific T wave abnormality no longer evident in Anterior leads Referred By: Perri Olson Electronically Signed By: RAJESH BARRERA MD
--- NOTE | 2025-03-04 15:24 | ED.CHESTPAIN ---
HPI - Chest Pain General Chief Complaint: Chest Pain Stated Complaint: Chest pain sob Time Seen by Provider: 03/04/25 15:35 Source: patient Mode of arrival: ambulatory Limitations: no limitations History of Present Illness ED Provider: Priyanka Way APRN HPI narrative: 34 yo male With history of AFib not on AC therapy, seizures, opiate use disorder on methadone but currently using IV drugs daily presents to the ER with complaints of left-sided chest pain which began yesterday while at rest and has been constant since with shortness of breath. It is not exertional. Not worsened with deep breathing or movement. There is some relief with sitting forward. No reports of cough, abdominal pain, vomiting, leg pain or leg swelling. Patient believes he may have had some tactile fevers in the last week. Related Data Previous Rx's ?Medication ?Instructions ?Recorded phenylephrine 0.25 %-pramoxine 1 1 appl SD BID Hemorroids #26 grams 07/16/22 %-glycerin-wh.petrolatum rectal cream amoxicillin 875 mg-potassium 1 tab PO BID #20 tabs 08/30/22 clavulanate 125 mg tablet ibuprofen 600 mg tablet 600 mg PO Q8H PRN pain #20 tabs 08/30/22 tramadol 50 mg tablet 50 mg PO Q8H PRN severe pain 08/30/22 (scale score 7-10) #8 tabs amoxicillin 875 mg-potassium 1 tab PO BID #19 tabs 01/11/23 clavulanate 125 mg tablet Allergies Allergy/AdvReac Type Severity Reaction Status Date / Time No Known Allergies Allergy Verified 03/04/25 15:29 Review of Systems Review of Systems: Yes all other systems are reviewed and are negative Constitutional: Constitutional: Reports no additional constitutional complaints, Denies body ache(s), Denies chills, Denies fever(s), Denies headache(s) and Denies weakness Eyes: Eyes: Reports no additional eye complaints and Denies change in vision ENT: Reports system reviewed and no additional complaints, except as documented, Denies dizziness, Denies headache(s), Denies nasal congestion, Denies nasal discharge and Denies neck pain Cardiovascular: Cardiovascular: Reports no additional cardiovascular complaints, Reports chest pain, Denies leg edema and Reports dyspnea Respiratory: Respiratory: Reports no additional respiratory complaints, Denies cough and Reports dyspnea Gastrointestinal: Gastrointestinal: Reports no additional gastrointestinal complaints, Denies abdominal pain, Denies diarrhea, Denies nausea and Denies vomiting Genitourinary: Genitourinary: Denies urinary incontinence Musculoskeletal: Musculoskeletal: Reports no additional musculoskeletal complaints, Denies back pain, Denies arthralgias, Denies joint swelling, Denies neck pain, Denies numbness and Denies tingling Integumentary/Breasts: Skin/Breast: Reports system reviewed and no additional complaints, except as docu and Denies rash Neurologic: Reports system reviewed and no additional complaints, except as documented, Denies Abnormal speech present, Denies dizziness, Denies headache(s), Denies numbness, Denies tingling and Denies weakness PMFSH Past Medical History Attestation statement: The following information was validated with the patient. Source: old records reviewed and nursing notes reviewed Medical History Tonsillitis Social History Social History Alcohol intake: never Patient Tobacco Use Status: Current everyday Tobacco user Smoked in Last 30 Days: No Use of substances other than those prescribed or required for medical reasons: Yes Substance Use Type: Marijuana and Opiates Advance Directives: No Advance Directives Information Provided: No Physical Exam Vital Signs: Vital Signs: Last Vital Signs Temp 98.2 F 03/04/25 18:49 Pulse 50 03/04/25 18:49 Resp 16 03/04/25 18:49 BP 166/94 H 03/04/25 18:49 Pulse Ox 99 03/04/25 18:49 O2 Del Method Room Air 03/04/25 17:03 BMI result Body Mass Index 24.4 Const: General: cooperative, healthy appearing, comfortable and no acute distress Orientation/consciousness: patient oriented x3 Limitations: no limitations HEENT: Head: Yes normal to inspection Ears: hearing grossly normal bilaterally General nose exam: Normal external nose present Face and sinus: Yes normal facial exam Mouth: Normal oral and palatal mucosa present Throat: Yes posterior oropharynx normal Eyes: General: appearance normal, both eyes and all related structures Pupils: Equal, round and reactive pupils present Neck: Neck: Yes normal visual inspection Chest: Chest palpation & inspection: normal inspection of the chest Resp: Effort & Inspection: normal respiratory effort Auscultation: clear to auscultation bilaterally Cardio: Rate: regular rate Rhythm: regular rhythm Peripheral pulses: Peripheral pulses 2+ throughout GI: Inspection: Yes normal to inspection Palpation (GI): Soft to palpation and nontender Auscultation: normal bowel sounds Back/Spine/Pelvis: Thoracic/Lumbar Spine: thoracic and lumbar spine normal to inspection Skin: General skin exam: no rashes or lesions noted Neuro: General: patient oriented x3, no focal motor deficits and normal sensation to monofilament Cranial nerves: Yes Equal, round and reactive pupils present Cognition (Neuro): normal cognition Speech: No Abnormal speech present Gait exam (Neuro): Normal gait present Motor exam (neuro): 5/5 motor strength present throughout Extrem: General: Yes normal to inspection, Yes no calf tenderness and No edema Course Course Course Narrative: This is a Rapid Medical Examination (RME) performed by Perri Olson NP in triage. Full assessment, plan deferred to director institution. 34-year-old male patient with a medical history per the chart of substance abuse, prior diagnosis of atrial fibrillation non-compliant with metoprolol, presents to the ED for evaluation reporting sharp left-sided chest pain, as well as associated shortness of breath. Reports that when the pain occurs, he feels short of breath. No exacerbating symptoms. Was able to go on a 2-hour walk yesterday. Is physically active at baseline. No recent travel. Is on methadone, metoprolol. Stendal his pain increased after his methadone this morning. He used Xylazine at 1 am when using drugs. Plan: EKG, Troponin, Labs, Chest X-ray. Reevaluation(s) Reevaluation #1: 1258- doubt ACS with symptoms greater than 24 hours with a nonischemic EKG and flat troponin. Doubt PE or septic emboli with a negative CTA. Doubt dissection with gradual onset of symptoms. Consider endocarditis but patient is afebrile, nontoxic appearing, no leukocytosis, normal EKG and flat troponin so less likely. Reviewed findings with the patient. Did offer detox resources but he declined this. Did accept at home Narcan. He was given information of the [facility] and I did recommend he follow up with his primary care doctor in regards to his visit today. Comfortable plan for discharge home. Medications Administered Discontinued Medications Generic Name Dose Route Start Last Admin Trade Name Freq PRN Reason Stop Dose Admin Sodium Chloride 1,000 mls @ 999 mls/hr 03/04/25 16:00 03/04/25 17:14 Ns IV 03/04/25 17:00 Infused .Q1H1M MEGHNA Infusion Iohexol 100 ml 03/04/25 16:26 03/04/25 16:26 Iohexol 350 Mg/Ml 100 Ml Infus..Btl IV 03/04/25 16:27 85 ml ONCE ONE Administration Ketorolac Tromethamine 15 mg 03/04/25 15:52 03/04/25 16:09 Ketorolac Tromethamine 15 Mg/Ml Vial IVPUSH 03/04/25 15:53 15 mg ONCE ONE Administration Naloxone HCl 8 mg 03/04/25 18:46 03/04/25 18:50 Naloxone Hcl Nasal Take Home 4 Mg [place] NOSTRILALT 03/04/25 18:47 8 mg ONCE ONE Administration Medical Decision Making Medical Decision Making MDM Narrative: 34 yo male With history of AFib not on AC therapy, seizures, opiate use disorder on methadone but currently using IV drugs daily presents to the ER with complaints of left-sided chest pain which began yesterday while at rest and has been constant since with shortness of breath. It is not exertional. Not worsened with deep breathing or movement. There is some relief with sitting forward. No reports of cough, abdominal pain, vomiting, leg pain or leg swelling. Patient believes he may have had some tactile fevers in the last week. Exam is benign Vitals are stable Will obtain labs, EKG, chest x-ray, viral testing, CTA Differential Diagnosis Differential Diagnoses: The differential diagnosis associated with the presentation includes ACS, pericarditis, myocarditis, PE, septic emboli, endocarditis, PNA Admission/Observation Consideration of admission/observation: Escalation of care including admission/observation considered see course of care Lab Data MDM Lab Attestation statement: I reviewed the patient's lab results. 03/04/25 15:34 03/04/25 15:34 Labs: Lab Results 03/04/25 03/04/25 Range/Units 15:34 16:02 WBC 11.6 H (4.8-10.8) X10*3/uL RBC 4.25 L (4.60-5.80) X10*6/uL Hgb 11.4 L (14.0-18.0) g/dl Hct 35.2 L (42.0-52.0) % MCV 82.8 (80.0-98.0) fL MCH 26.8 L (27.0-33.0) pg MCHC 32.4 (31.0-36.0) g/dl RDW 13.2 (11.0-16.0) % Plt Count 317 (160-400) X10*3/uL MPV 9.2 L (9.4-12.4) fL Immature Gran % (Auto) 0.4 (0.0-0.4) % Neut % (Auto) 76.9 H (45-73) % Lymph % (Auto) 12.7 L (20-40) % [place] % (Auto) 7.7 (2-11) % Eos % (Auto) 2.0 (0-4) % Baso % (Auto) 0.3 (0-2) % Lymph # (Auto) 1.5 (1.2-4.9) X10*3/uL [place] # (Auto) 0.9 (0.1-1.2) X10*3/uL Eos # (Auto) 0.2 (0.0-0.4) X10*3/uL Baso # (Auto) 0.0 (0.0-0.2) X10*3/uL Abs Immat Gran (auto) 0.05 H (0.00-0.03) X10*3/uL Absolute Neuts (auto) 8.9 H (2.0-8.3) x10*3/uL Absolute Nucleated RBC 0.000 (0.0-0.012) X10*3/uL Nucleated RBC % (auto) 0.0 (0.0-0.2) /100WBC Sodium 142 (135-145) mmol/L Potassium 4.3 (3.3-5.1) mmol/L Chloride 106 (96-108) mmol/L Carbon Dioxide 28 (22-29) mmol/L Anion Gap 12 (12-20) BUN 19 H (9-16) mg/dL Creatinine 0.81 (0.5-1.4) mg/dL Estim Creat Clear Calc 122.4 Estimated GFR > 60 Random Glucose 98 (60-115) mg/dL Lactic Acid 0.6 (0.5-2.0) mmol/L Calcium 9.6 (8.4-10.2) mg/dL Total Bilirubin 0.2 (0.0-1.0) mg/dL AST 24 (5-37) U/L ALT 26 (0-40) U/L Alkaline Phosphatase 90 (39-117) U/L Troponin I High Sens < 2.7 (<3.5-35.0) ng/L Total Protein 7.4 (6.5-8.0) g/dL Albumin 4.5 (3.5-5.0) g/dL Influenza Type A (PCR) NEGATIVE (Negative) Influenza Type B (PCR) NEGATIVE (Negative) RSV RNA Qual (PCR) NEGATIVE (Negative) SARS-CoV-2 RNA (RT-PCR) NEGATIVE (Negative) Independent Interpretation I performed an independent interpretation of an: EKG, Plain X-Ray and CT Scan Interpretation: I independently reviewed the EKG which shows normal sinus rhythm with a rate of 60 I independently viewed the x-ray/ct scan and agree with the radiology report Radiology Impression Discussion of test interpretation with radiology: I have reviewed the radiologist's reading. Radiologist Impression: [place] [id number] XRay Report Signed Patient: Gabriel Shelton MR#: [id number] : 1990 Acct:[id number] Age/Sex: 34 / M ADM Date: 03/04/25 Loc: .ED Attending Dr: Ordering Physician: Perri Olson Date of Service: 03/04/25 Procedure(s): XR chest 2V Accession Number(s): [id number] cc: Perri Olson [facility]; Physician,Unknown ~ Reason for Exam: CP CLINICAL HISTORY: CP 2 view chest x-ray Comparison: None provided Findings: No consolidation or effusion. Normal size heart. No acute fracture. IMPRESSION: 1. No acute findings. [address] [id number] [address] Scan Report Signed Patient: Gabriel Shelton MR#: [id number] : 1990 Acct:[id number] Age/Sex: 34 / M ADM Date: 03/04/25 Loc: HO.ED Attending Dr: Ordering Physician: Priyanka Way NP Date of Service: 03/04/25 Procedure(s): CT angio chest PE protocol Accession Number(s): [id number] cc: Priyanka Way NP; Theodora Mccall MD~ Report Number: [id number]: Total DLP = 259.00 mGy-cm Reason for Exam: IVDA, CP/SOB, r/o septic emboli vs PE CLINICAL HISTORY: IVDA, CP SOB, r o septic emboli vs PE CT angiography chest with contrast. 3D Postprocessing. Comparison: CR - XR CHEST 2V - 03/04/25 15:38 EST Findings: The heart size is normal. RV/LV ratio is normal. Unremarkable thoracic aorta and great vessels. No aneurysm. No pulmonary artery filling defects. The visualized thyroid and mediastinum are unremarkable. 3 mm ground-glass nodule in the right upper lobe ( series 9, image [id number]), these are typically postinflammatory. No further follow-up is necessary for ground-glass nodules of this size. Intrapulmonary lymph node in the right minor fissure. No consolidation, pleural effusion or pneumothorax. The upper abdomen is unremarkable. No acute fractures. IMPRESSION: 1. No acute intrathoracic findings. Discharge Plan Discharge Clinical Impression: Chest pain Patient Disposition: Home, Self-Care Instructions: Chest Pain (ED) Additional Instructions: Your blood work, EKG, x-ray and CT scan are reassuring. Please return for any worsening symptoms like worsening chest pain, shortness of breath or fever greater than 100.4. If you are interested in any detox resources please let us know. Opiate use disorder You also may have been given naloxone (narcan) to take home with you. This medication is used to potentially treat opiate overdose. If you decide you want to stop or cut down on how much you?re using, you can call or walk into our outpatient Addiction Treatment office: [facility] (M-F 9am-5p) [address] [place] [address], [address] [phone] You may have been provided with safer injection?items, please take time to take care of YOU and your health. Use new supplies whenever possible to lessen the chances of infections and other illnesses.? ?If you need more supplies, please go [facility],? [address] [place] [address] OR you can call or text to coordinate delivery of safer supplies. s. Prescriptions: No Action pzwryqaqr-lpfmjsjx-rbuqe-w.pet 0.25-1 % cream 1 appl SD BID Qty: 26 0RF amoxicillin-pot clavulanate 875-125 mg tablet 1 tab PO BID Qty: 19 0RF amoxicillin-pot clavulanate 875-125 mg tablet 1 tab PO BID Qty: 20 0RF ibuprofen 600 mg tablet 600 mg PO Q8H PRN (Reason: pain) Qty: 20 0RF tramadol 50 mg tablet 50 mg PO Q8H PRN (Reason: severe pain (scale score 7-10)) Qty: 8 0RF Referrals: Theodora Mccall MD [Primary Care Provider, Family Practice] Interventions: ED Discharge Assessment Last Done: 03/04/25 18:49 Print Language: [place]ar[place]uan
[2025-03-04 15:26] VITALS: BP 145/106; PULSE 77; RESP 18; TEMP 36.9; O2SAT 98; BMI 24.4
[2025-03-04 15:44] LABS: MANUAL DIFF FLAG NO
[2025-03-04 15:45] LABS: Hematocrit 35.2 % (42.0-52.0); Hemoglobin 11.4 g/dl (14.0-18.0); Imm Gran Abs Auto 0.05 X10*3/uL (0.00-0.03); Imm Gran Pct Auto 0.4 % (0.0-0.4); Lymphocytes Absolute Auto 1.5 X10*3/uL (1.2-4.9); Mean Corpuscular HGB Conc 32.4 g/dl (31.0-36.0); Mean Corpuscular Hemoglobin 26.8 pg (27.0-33.0); Mean Corpuscular Volume 82.8 fL (80.0-98.0); NRBC Abs Auto 0.000 X10*3/uL (0.0-0.012); NRBC Pct Auto 0.0 /100WBC (0.0-0.2); Platelet Count 317 X10*3/uL (160-400); Red Blood Count 4.25 X10*6/uL (4.60-5.80); White Blood Count 11.6 X10*3/uL (4.8-10.8)
[2025-03-04 16:06] LABS: Alanine Aminotransferase 26 U/L (0-40); Albumin Level 4.5 g/dL (3.5-5.0); Alkaline Phosphatase 90 U/L (39-117); Anion Gap 12 (12-20); Aspartate Amino Transferase 24 U/L (5-37); Blood Urea Nitrogen 19 mg/dL (9-16); Calcium 9.6 mg/dL (8.4-10.2); Carbon Dioxide 28 mmol/L (22-29); Chloride 106 mmol/L (96-108); Creatinine Clr Calc Pharmacy 122.4; Estimated Glomerular Filt Rate > 60; Potassium 4.3 mmol/L (3.3-5.1); Sodium 142 mmol/L (135-145); Total Protein 7.4 g/dL (6.5-8.0)
[2025-03-04 16:15] LABS: Troponin-I High Sensitivity < 2.7 ng/L (<3.5-35.0)
[2025-03-04] MEDS: iohexoL 350 MG/ML 100 ML INFUS..BTL IV (16:26)
[2025-03-04 16:49] LABS: Resp Syncy Virus RNA Qual PCR NEGATIVE (Negative); SARS COV2 PCR INHOUSE NEGATIVE (Negative)
[2025-03-04 17:03] VITALS: BP 139/88; PULSE 61; RESP 12; TEMP 36.7; O2SAT 97
[2025-03-04 18:27] VITALS: BP 166/94; PULSE 50; RESP 16; TEMP 36.8; O2SAT 99
[2025-03-04 18:49] VITALS: BP 166/94; PULSE 50; RESP 16; TEMP 36.8; O2SAT 99
[2025-03-04] MEDS: Naloxone HCl Nasal TAKE HOME 4 MG SPRAY 8 MG NOSTRILALT (18:50)
== END 2025-03-04 18:52 | disposition home or self-care (01) ==
PROVIDERS: Nurse Practitioner; Nurse Practitioner Family; Emergency Provider Emergency Medicine; PCP Family Medicine
DX: R07.9 Chest pain, unspecified (principal); F17.210 Nicotine dependence, cigarettes, uncomplicated; Z03.818 Encounter for observation for suspected exposure to other biological agents ruled out; R06.02 Shortness of breath; R50.9 Fever, unspecified
CPT/HCPCS: 36415; 71046; 71275; 80053; 83605; 84484; 85025; 87040; 87637; 93005; 96361; 96374; 99285; J1885; Q9967

== ENCOUNTER → 2025-03-04 15:12 | Outpatient (BNV) | payer MEDICAID, SELFPAY | PROVIDERS: Emergency Provider Emergency Medicine; PCP Family Medicine; Visit Provider Internal Medicine Cardiovascular Disease | DX: R07.9 Chest pain, unspecified (principal) | CPT/HCPCS: 93010 ==

== ENCOUNTER → 2025-03-04 15:28 | Outpatient (BNV) | payer MEDICAID, SELFPAY | PROVIDERS: Emergency Provider Emergency Medicine Emergency Medical Services; PCP Family Medicine; Visit Provider Radiology Diagnostic Radiology | DX: R07.9 Chest pain, unspecified (principal); R06.02 Shortness of breath | CPT/HCPCS: 71046; 71275 ==